=== PATIENT | male | born 1935 | race Caucasian/White ===

== ENCOUNTER → 2020-05-19 12:55 | Outpatient (CLI) | payer MEDICARE, OTHER, SELFPAY | PROVIDERS: PCP Family Medicine; Referring Provider Specialist; Visit Provider Specialist | DX: C61 Malignant neoplasm of prostate (principal); N39.0 Urinary tract infection, site not specified; Z87.442 Personal history of urinary calculi | CPT/HCPCS: 51798; 81002; 87086; 96402; 99213; J9217 ==